=== PATIENT | female | born 1995 | race Hispanic/Latino ===

== ENCOUNTER 2018-03-21 22:36 | Emergency (ER) | payer SELFPAY ==
[~2018-03-21] VITALS: Ht 162.6 cm; Wt 86.4 kg
[2018-03-21] MEDS ORDERED: EXCETAB81 PO (22:58)
[2018-03-22] MEDS ORDERED: ONDANSETRON 4 MG ORAL DISINTEGRATING TAB (Q0162 PER 1MG) PO ONE (01:30)
[2018-03-22] MEDS ORDERED: GI COCKTAIL 50ML BTL(HYOSCYAMINE/MAALOX/LIDOCAINE VISCOUS)(1:3:1) PO ONE (01:30)
[2018-03-22] MEDS ORDERED: IBUPROFEN 600 MG TAB PO ONE (01:30)
[2018-03-22] MEDS ORDERED: IBUP-1022 PO (02:34)
[2018-03-22] MEDS ORDERED: REGL10TA6 PO (02:34)
[2018-03-22 02:49] LABS: INFLUENZA A AMPLIFICATION NEGATIVE (NEGATIVE); INFLUENZA B AMPLIFICATION NEGATIVE (NEGATIVE)
[2018-03-22 03:00] VITALS: BP 128/67
== END 2018-03-22 03:27 | disposition home or self-care (01) ==
LOC: M ED 22:36
DX: B34.9 Viral infection, unspecified (principal); R11.0 Nausea; M79.10 Myalgia, unspecified site; R51 Headache
CPT/HCPCS: 81025; 87502; 99284; Q0162

== ENCOUNTER → 2019-07-18 | Outpatient (CLI) | payer OTHER ==
[~2019-07-18] MED LIST: EXCETAB81 PO; IBUP-1022 PO; REGL10TA6 PO
[2019-07-18 15:13] LABS: FREE T4 1.11 NG/DL (0.76-1.46); THYROID STIMULATING HORMONE 0.567 uIU/ML (0.358-3.740)
[2019-07-18 15:15] LABS: FOLLICLE STIMULATING HORMONE 8.2 mIU/mL; LUTEINIZING HORMONE 30.6 mIU/mL; PROGESTERONE 0.66 NG/ML; PROLACTIN 13.3 NG/ML
== END ==
LOC: M WUC 12:27
PROVIDERS: ATTEND Specialist
DX: N92.6 Irregular menstruation, unspecified (principal)